=== PATIENT | male | born 1960 | race Caucasian/White ===

== ENCOUNTER → 2020-03-26 08:21 | Outpatient (BNVA) | payer OTHER, SELFPAY | PROVIDERS: Family Provider Nurse Practitioner Family; Referring Provider Nurse Practitioner Family; Visit Provider Orthopaedic Surgery | DX: M65.861 Other synovitis and tenosynovitis, right lower leg (principal); M25.561 Pain in right knee | CPT/HCPCS: 73560; 73565 ==

== ENCOUNTER → 2021-06-02 16:29 | Outpatient (BNVA) | payer OTHER, SELFPAY | PROVIDERS: Family Provider Nurse Practitioner Family; Visit Provider Nurse Practitioner | DX: Z20.822 Contact with and (suspected) exposure to COVID-19 (principal) | CPT/HCPCS: 87635 ==

== ENCOUNTER 2021-07-02 17:19 | Emergency (ER) | payer OTHER, SELFPAY ==
[2021-07-02 17:30] VITALS: BP 135/79; PULSE 72; RESP 20; TEMP 37; O2SAT 98; BMI 35.0
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
--- NOTE | 2021-07-02 18:30 | ECG_ITS ---
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 Measurements Intervals [place] Rate: 64 P: 41 [place]: 181 QRS: -17 QRSD: 100 T: 16 QT: 390 QTc: 405 Interpretive Statements SINUS RHYTHM VOLTAGE CRITERIA FOR LVH [MEETS CRITERIA IN ONE OF: R(aVL), S(V1), R(V5), R(V5/V6)+S(V1)] Compared to ECG 07/02/2014 06:19:12 Left ventricular hypertrophy now present Electronically Signed On 07-03-2021 5:35:15 PERMACULTURE CONTRACTOR by Dian Flaherty M.D. [id number]
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
[2021-07-02 18:44] VITALS: RESP 13
[2021-07-02] MEDS: HYDROmorphone 1 mg/mL INJ 1 mL IM (18:44)
[2021-07-02 19:14] LABS: Basophils % 0.3 %; Eosinophils % 0.2 %; Hematocrit 47.5 % (42.0-52.0); Hemoglobin 16.4 g/dL (11.7-16.6); Lymphocytes # 1.8 10^3/uL (0.8-4.8); Lymphocytes % 17.7 %; Mean Corpuscular HGB Conc 34.5 g/dL (30.0-36.0); Mean Corpuscular Hemoglobin 29.7 pg (28.0-34.0); Mean Corpuscular Volume 86.1 fl (80-94); Mean Platelet Volume 9.4 fL (7.4-10.4); Monocytes # 0.7 10^3/uL (0.2-0.9); Monocytes % 7.1 %; Neutrophils # 7.46 10^3/uL (1.8-7.7); Neutrophils % 74.4 %; Nucleated Red Blood Cells % 0 %; Platelet Count 329 10^3/cmm (130-400); Red Blood Count 5.52 10^6/uL (4.1-5.3); Red Cell Distribution Width 13.2 % (12.1-15.1)
[2021-07-02 19:32] LABS: Alanine Aminotransferase 30 U/L (0-41); Albumin Level 4.7 g/dL (3.5-5.2); Alkaline Phosphatase 89 IU/L (40-130); Aspartate Amino Transferase 27 U/L (0-40); Blood Urea Nitrogen 15 mg/dL (8-23); Calcium 10.4 mg/dL (8.5-10.5); Carbon Dioxide 22 mmol/L (22-29); Chloride 103 mmol/L (98-107); Globulin 2.9 g/dL (1.3-4.6); Glomerular Filtration Rate 61.6 mL/min (90-130); Glucose 103 mg/dL (65-115); Osmolality Calculated 283 mOsm/kg (285-295); Sodium 136 mmol/L (136-145); Total Bilirubin 0.6 mg/dL (0.15-1.2); Total Protein 7.6 g/dL (6.6-8.7)
[2021-07-02] MEDS: iohexol 300 mg/mL 100 mL Btl IV (19:46)
--- NOTE | 2021-07-02 20:37 | XRR_ITS ---
PROCEDURE INFORMATION: Exam: XR Left Shoulder Exam date and time: 07/02/2021 8:37 PM Age: 61 years old Clinical indication: Pain; Shoulder; Left; Additional info: Injury TECHNIQUE: Imaging protocol: XR Left shoulder. Views: 2 or more views. COMPARISON: CT chest abd pel w con* 07/02/2021 7:46 PM FINDINGS: Bones/joints: Normal. Soft tissues: Normal. XR/XR shoulder LT min 2V* [id number] IMPRESSION: No acute findings.
[2021-07-02] MEDS: HYDROcodone-acetaminophen 5-325 mg Tablet 2 TAB PO (20:41)
== END 2021-07-02 20:45 | disposition home or self-care (01) ==
PROVIDERS: Emergency Provider Nurse Practitioner Family; PCP Nurse Practitioner Family
DX: S22.42XA Multiple fractures of ribs, left side, initial encounter for closed fracture (principal); M25.512 Pain in left shoulder; Z79.82 Long term (current) use of aspirin; V29.9XXA Motorcycle rider (driver) (passenger) injured in unspecified traffic accident, initial encounter
CPT/HCPCS: 71101; 71260; 73030; 74177; 80053; 85025; 93005; 96372; 99283; J1170; Q9967

== ENCOUNTER 2021-07-05 23:59 | Emergency (ER) | payer OTHER, SELFPAY ==
[2021-07-06 00:03] VITALS: BP 178/106; PULSE 62; RESP 24; TEMP 36.7; O2SAT 96; BMI 35.0
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
[2021-07-06] MEDS: HYDROmorphone 1 mg/mL INJ 1 mL IM (01:26)
[2021-07-06] MEDS: HYDROcodone-acetaminophen 10-325 mg Tablet 1 TAB PO (02:41)
== END 2021-07-06 02:43 | disposition home or self-care (01) ==
PROVIDERS: Emergency Provider Physician Assistant; PCP Nurse Practitioner Family
DX: S22.42XA Multiple fractures of ribs, left side, initial encounter for closed fracture (principal); Z79.82 Long term (current) use of aspirin; E78.5 Hyperlipidemia, unspecified; I10 Essential (primary) hypertension; V89.2XXA Person injured in unspecified motor-vehicle accident, traffic, initial encounter
CPT/HCPCS: 71101; 99283; J1170

== ENCOUNTER 2023-03-18 13:18 | Outpatient (CLI) | payer OTHER, SELFPAY ==
--- NOTE | 2023-03-18 13:43 | XR_ITS ---
WS: [id number] Exam: XR knee LT 3V* [id number] Date/Time of Exam: 03/18/2023 1:48 PM Reason For Exam: PAIN IN LEFT KNEE/EFFUSION Comparison 03/26/2020. No acute fracture or dislocation. Moderate tricompartmental DJD noted. There are screws in the medial aspect of the upper tibia and lower femur. Moderate effusion in the suprapatellar bursa. There are l ikely loose joint bodies present. IMPRESSION: 1. Moderate tricompartmental DJD. No fracture. 2. Moderate effusion in the suprapatellar bursa. 3. Probable loose joint bodies. Screws in the upper tibia and distal femur.
== END 2023-03-18 13:19 | disposition home or self-care (01) ==
PROVIDERS: PCP Nurse Practitioner Family; Visit Provider Nurse Practitioner Family
DX: M17.12 Unilateral primary osteoarthritis, left knee (principal); M25.562 Pain in left knee; M25.462 Effusion, left knee
CPT/HCPCS: 73562

== ENCOUNTER → 2023-06-18 14:10 | Outpatient (BNVA) | payer OTHER, SELFPAY | PROVIDERS: PCP Nurse Practitioner Family; Referring Provider Nurse Practitioner Family; Visit Provider Student in an Organized Health Care Education/Training Program | DX: M25.562 Pain in left knee (principal); M17.11 Unilateral primary osteoarthritis, right knee | CPT/HCPCS: 73560; 73565 ==

== ENCOUNTER 2023-06-18 14:57 | Outpatient (CLI) | payer OTHER, SELFPAY | END 2023-06-18 14:58 | disposition home or self-care (01) | LOC: SPT 14:57 | PROVIDERS: PCP Nurse Practitioner Family; Visit Provider Student in an Organized Health Care Education/Training Program | DX: Z46.89 Encounter for fitting and adjustment of other specified devices (principal); M17.12 Unilateral primary osteoarthritis, left knee | CPT/HCPCS: 97760; L1851 ==

== ENCOUNTER 2023-11-18 11:32 | Emergency (ER) | payer OTHER, SELFPAY ==
[2023-11-18 11:33] VITALS: BP 147/95; PULSE 65; RESP 22; TEMP 36.9; O2SAT 98
--- NOTE | 2023-11-18 11:56 | XRR_ITS ---
NOTE: Report was unsigned for reason: Order was edited. Original Signature date and time was: 11/18/23 @ 1200 PROCEDURE INFORMATION: Exam: XR Right Hand Exam date and time: 11/18/2023 12:00 PM Age: 63 years old Clinical indication: Injury or trauma; Other: Smashed hand; Blunt trauma (contusions or hematomas); Right TECHNIQUE: Imaging protocol: Radiologic exam of the right hand. Views: 3 or more views. COMPARISON: No relevant prior studies available. FINDINGS: Bones/joints: There are acute comminuted fractures involving the distal tips of the 2nd and 3rd distal phalanges. Associated soft tissue lacerations are noted. No other fracture identified. Soft tissues: See Bones/joints finding. MTDD XR/XR hand LT min 3V* [id number] IMPRESSION: Fractures of the 2nd and 3rd distal phalanges with associated soft tissue injury
[2023-11-18] MEDS: tetanus-dipt-pertussis 0.5 mL SDV IM (12:20)
[2023-11-18] MEDS: ceFAZolin 1,000 mg SDV 1000 MG IVP (12:21)
[2023-11-18] MEDS: ondansetron 2 mg/ML SDV 2 mL 4 MG IVP (12:30)
--- NOTE | 2023-11-18 12:30 | W.ED.EXTPRO ---
HPI - Extremity Problem General: Chief complaint: Extremity Injury, Upper Stated complaint: L hand lac Time Seen by Provider: 11/18/23 11:37 Source: patient Mode of arrival: ambulatory History of Present Illness: 63-year-old male presents emergency room with complaint of crush injury to his left second and third fingers he was working at a local [employer] got his hands between some machinery and solid object in his left second and third fingers were crushed she is unsure of his last tetanus shot. MD Complaint: extremity pain Onset (ago): minute(s) Pain Consistency: constant Location: left and upper extremity (Second third fingers) Severity scale (1-10): 10 Quality: sharp Relieving factors: nothing Exacerbating factors: range of motion and palpation Associated symptoms: Deny arthralgias, chest pain, fever(s), myalgias, rash or short of breath Review of Systems Const: Denies: fever(s) or chills Card: Denies: chest pain Resp: Denies: dyspnea GI: Denies: abdominal pain Musc: Reports: extremity pain; Denies: neck pain or back pain Skin/Breast: Denies: rash PFSH ED PFSH: Medical History No pertinent family history Hypertension Hyperlipidemia Social History Smoking and tobacco/nicotine status: never used tobacco/nicotine Second hand smoke exposure: No Alcohol intake: former Physical Exam Const: GENERAL APPEARANCE: cooperative and comfortable ORIENTATION/CONSCIOUSNESS: Yes awake, Yes oriented to person, Yes oriented to place and Yes oriented to time HENMT: COMMON NORMALS: normocephalic, atraumatic and hearing grossly normal bilaterally HEAD & SCALP: normocephalic and atraumatic Resp: COMMON NORMALS: normal respiratory effort, No retractions, No use of accessory muscles and clear to auscultation bilaterally AUSCULTATION: clear to auscultation bilaterally Cardio: COMMON NORMALS: regular rate, regular rhythm and No murmurs present (Cardio) RATE: regular rate RHYTHM: regular rhythm Extremity: COMMON NORMALS: normal to inspection, capillary refill normal, no clubbing, cyanosis or edema, no calf tenderness and no pedal edema OTHER: Crush injury to the tips of the right second and third fingers. There is maceration of the tissue not amenable to any suture repair Neuro: SENSORIUM/ORIENTATION: Yes oriented to person, Yes oriented to place and Yes oriented to time Skin: COMMON NORMALS: no rashes or lesions noted GENERAL SKIN EXAM: no rashes or lesions noted Course Vital Signs: Vital signs: Vital Signs Temperature 98.4 F 11/18/23 11:33 Pulse Rate 66 11/18/23 14:17 Respiratory Rate 17 11/18/23 13:35 Blood Pressure 133/88 11/18/23 14:17 Pulse Oximetry 95 11/18/23 14:17 Oxygen Delivery Me thod Room Air 11/18/23 13:35 MDM - Extremity (Nontraumatic) Medical Decision Making Crush injury to the right second third fingertips with distal phalanx fractures. There is really not anything amenable to this laceration repair in the emergency room the tissue is quite macerated likely will not be viable if it is a think they will be enough tissue loss that will be difficult to function. Discussed with patient we will discharge him home wound was cleaned and bandaged after digital nerve block applied. Started him on Augmentin. He has received a gram of Ancef here and also updated his tetanus. We have arranged for him to see Dr. Tenorio tomorrow Dr. Tenorio asked that he be n.p.o. for possible revision tomorrow Medical Records I reviewed the patient's medical records. Lab Data I reviewed the patient's lab results. Radiology Impressions Hand X-Ray 11/18/23 11:56 IMPRESSION: Fractures of the 2nd and 3rd distal phalanges with associated soft tissue injury All radiology interpretation(s) finalized by discharge Discharge Plan Discharge Patient Disposition: Home Clinical Impression: Crushing injury of finger of left hand, Fracture of distal phalanx of finger, open Condition: Stable Prescriptions: New hydrocodone-acetaminophen 5-325 mg tablet 1 tab PO Q6H PRN (Reason: pain) Qty: 20 0RF amoxicillin-pot clavulanate 875-125 mg tablet 1 tab PO BID Qty: 14 0RF No Action lisinopril 30 mg tablet 30 mg PO DAILY omeprazole 10 mg capsule,delayed release(DR/EC) 10 mg PO BID (DME) Knee immobilizer See Rx Instructions .Route .MEDSUPPLY Qty: 1 0RF Rx Instructions: As directed (DME) College Scouting Coordinator Knee Brace See Rx Instructions .Route .MEDSUPPLY Qty: 1 0RF Rx Instructions: As directed fenofibrate nanocrystallized 145 mg tablet 145 mg PO DAILY Voltaren Arthritis Pain 1 % gel 2 g topical QID PRN (Reason: JOINT PAIN) Rx Instructions: apply to single elbow, wrist or hand; for hand includes palm/fingers/back of hand Discharge Orders: Discharge ED (Routine); Ordered 11/18/23 Ordered By: Frank Johnson Referrals: Shruthi Dacosta FNP [Primary Care Provider] - Patient Instructions: Opioid Safety, Pain Management Activity Restrictions/Additional Instructions: Thank you for choosing [facility] for your healthcare needs today. It is very important that you follow up as instructed or that you return to the Emergency Department should you have concerns or if your condition changes or worsens in any way. You were seen in the emergency room after a crush injury to the Left hand. The wound was cleaned today and you are started on antibiotics your tetanus was updated. Follow-up with Dr. Tenorio tomorrow in his office do not eat after midnight. He will discuss with your definitive care for these injuries start the oral antibiotics this evening. Coding Level of Care Code ED Aircraft Navigator for Rossy Moreno
[2023-11-18 12:31] VITALS: RESP 16; O2SAT 95
[2023-11-18] MEDS: morphine 4 mg/mL SDV 1 mL IVP (12:31)
[2023-11-18 13:01] VITALS: BP 128/77; PULSE 61; RESP 16; O2SAT 94
[2023-11-18 13:35] VITALS: PULSE 60; RESP 17; O2SAT 94
[2023-11-18 14:17] VITALS: BP 133/88; PULSE 66; O2SAT 95
--- NOTE | 2023-11-18 14:19 | PC.NURSE ---
applied Vaseline gauze to L index/middle finger, telfa, and wrapped with kerlix and coban.
== END 2023-11-18 14:20 | disposition home or self-care (01) ==
PROVIDERS: Emergency Provider Family Medicine; PCP Nurse Practitioner Family
DX: S62.630B Displaced fracture of distal phalanx of right index finger, initial encounter for open fracture (principal); S62.633B Displaced fracture of distal phalanx of left middle finger, initial encounter for open fracture; I10 Essential (primary) hypertension; E78.5 Hyperlipidemia, unspecified; Z79.899 Other long term (current) drug therapy
CPT/HCPCS: 73130; 90471; 90715; 96374; 96375; 99284; 99291; J0690; J2270; J2405

== ENCOUNTER 2023-11-21 14:14 | Emergency (ER) | payer SELFPAY ==
[2023-11-21 14:20] VITALS: BP 170/81; PULSE 79; RESP 17; TEMP 37.1; O2SAT 96; BMI 35.5
--- NOTE | 2023-11-21 14:41 | W.ED.EXTPRO ---
HPI - Extremity Problem General: Chief complaint: Extremity Problem,Nontraumatic Stated complaint: bandage came off post surgery (surgery yesterday) Time Seen by Provider: 11/21/23 14:27 History of Present Illness: 63-year-old male who was seen 2 days ago after crush injury to his left second and third fingers. He was referred to orthopedics and had a revision of the fingertips yesterday. His bandage came off and he presented to the emergency room wanting to have it reevaluated. He has not had any fever sweats chills no drainage no bleeding does have some mild discomfort. Associated symptoms: Deny chest pain or fever(s) Review of Systems Const: Denies: fever(s) or chills Card: Denies: chest pain Resp: Denies: dyspnea [facility] ED PFSH: Medical History No pertinent family history Hypertension Hyperlipidemia Social History Smoking and tobacco/nicotine status: never used tobacco/nicotine Second hand smoke exposure: No Alcohol intake: former Physical Exam Const: COMMON NORMALS: no acute distress GENERAL APPEARANCE: cooperative and comfortable ORIENTATION/CONSCIOUSNESS: Yes awake, Yes oriented to person, Yes oriented to place and Yes oriented to time HENMT: COMMON NORMALS: normocephalic, atraumatic and hearing grossly normal bilaterally HEAD & SCALP: normocephalic and atraumatic Resp: COMMON NORMALS: normal respiratory effort and No retractions Extremity: OTHER: Wounds undressed. Well-approximated no active bleeding no signs infection no wound dehiscence Neuro: SENSORIUM/ORIENTATION: Yes oriented to person, Yes oriented to place and Yes oriented to time Course Vital Signs: Vital signs: Vital Signs Temperature 98.7 F 11/21/23 14:20 Pulse Rate 79 11/21/23 14:20 Respiratory Rate 17 11/21/23 14:20 Blood Pressure 170/81 11/21/23 14:20 Pulse Oximetry 96 11/21/23 14:20 Oxygen Delivery Me thod Room Air 11/21/23 14:20 MDM - Extremity (Nontraumatic) Medical Decision Making Wounds were redressed with Xeroform then Vaseline gauze and bulky padded dressing. Follow-up with orthopedics as previously scheduled. Continue same discharge instructions No radiology studies performed this visit Discharge Plan Discharge Patient Disposition: Home Clinical Impression: Fracture of distal phalanx of finger, open, Traumatic amputation of fingertip Condition: Stable Prescriptions: No Action lisinopril 30 mg tablet 30 mg PO DAILY omeprazole 10 mg capsule,delayed release(DR/EC) 10 mg PO BID (DME) Knee immobilizer See Rx Instructions .Route .MEDSUPPLY Qty: 1 0RF Rx Instructions: As directed (DME) City Clerk Knee Brace See Rx Instructions .Route .MEDSUPPLY Qty: 1 0RF Rx Instructions: As directed fenofibrate nanocrystallized 145 mg tablet 145 mg PO DAILY hydrocodone-acetaminophen 5-325 mg tablet 1 tab PO Q6H PRN (Reason: pain) Qty: 20 0RF amoxicillin-pot clavulanate 875-125 mg tablet 1 tab PO BID Qty: 14 0RF potassium 99 mg Tablet 99 mg PO DAILY ondansetron 4 mg tablet,disintegrating 4 mg PO Q8H PRN (Reason: nausea and vomiting) 3 Days Qty: 9 0RF Discharge Orders: Discharge ED (Routine); Ordered 11/21/23 Ordered By: Frank Johnson Referrals: Dacosta,Shruthi, CLOTH PIECER [Primary Care Provider] - Discharge Diet: Usual diet Discharge Activity: Limit activity as instructed Patient Instructions: Opioid Safety, Pain Management Activity Restrictions/Additional Instructions: Thank you for choosing [facility] for your healthcare needs today. It is very important that you follow up as instructed or that you return to the Emergency Department should you have concerns or if your condition changes or worsens in any way. Follow-up with Dr. Tenorio as previously prescribed continue his activity restrictions as given at the time of discharge from surgery Coding Level of Care Code ED Timing Machine Operator for Rossy Moreno
== END 2023-11-21 14:49 | disposition home or self-care (01) ==
PROVIDERS: Emergency Provider Family Medicine; PCP Nurse Practitioner Family
DX: Z48.01 Encounter for change or removal of surgical wound dressing (principal); S68.121A Partial traumatic metacarpophalangeal amputation of left index finger, initial encounter; S68.123A Partial traumatic metacarpophalangeal amputation of left middle finger, initial encounter; I10 Essential (primary) hypertension; E78.5 Hyperlipidemia, unspecified; X58.XXXA Exposure to other specified factors, initial encounter
CPT/HCPCS: 99282

== ENCOUNTER 2023-11-28 20:47 | Emergency (ER) | payer OTHER, SELFPAY ==
[2023-11-28 21:32] VITALS: BP 144/108; PULSE 85; RESP 18; O2SAT 98
[2023-11-28 21:35] VITALS: BP 150/99; PULSE 88
--- NOTE | 2023-11-28 21:48 | ED_ITS ---
HPI - Wound/Laceration General: Chief Complaint: Wound/Laceration Stated Complaint: infection in amputated finger shooting pain Time Seen by Provider: 11/28/23 21:12 Source: patient Mode of arrival: ambulatory Limitations: no limitations History of Present Illness: Patient is a nice 63-year-old male who presents the ED today for wound evaluation to his left finger amputation sites. Patient had revisions of his left index and middle fingers following traumatic amputation by Dr. Tenorio with date of service being 11/19. Patient states after surgery he finished a week worth of antibiotics. States today he noticed a small area to one of the distal tips that he was concerned with thus prompting his evaluation. Denies drainage, redness, warmth, streaking, or fevers. Extremity Location: Left: hand Patient tetanus UTD: Yes Associated symptoms: Reports no associated symptoms Review of Systems Musc: Reports: extremity pain Skin/Breast: Reports: other (small lesion to distal tip that he is concerned with) [facility] ED PFSH: Medical History No pertinent family history Hypertension Hyperlipidemia Social History Smoking and tobacco/nicotine status: never used tobacco/nicotine Second hand smoke exposure: No Alcohol intake: former Physical Exam Const: COMMON NORMALS: no acute distress, average body habitus, no limitations, healthy appearing, alert and well nourished Extremity: LEFT UPPER EXTREMITY: Yes hand & digits OTHER: pt with distal tip amputation repairs to L index and middle fingers; intact sutures; no redness, warmth, drainage, or streaking; has one small 2mm blood blister like formation that he was concerned about Neuro: SENSORIUM/ORIENTATION: Yes alert Course Vital Signs: Vital signs: Vital Signs Pulse Rate 88 11/28/23 22:04 Respiratory Rate 18 11/28/23 22:04 Blood Pressure 150/99 11/28/23 22:04 Pulse Oximetry 98 11/28/23 22:04 Oxygen Delivery Me thod Room Air 11/28/23 21:32 MDM - Wound/Laceration Medical Decision Making Finger surgical sites appear clean and well cared for and appear to be healing well. He has finished his antibiotics. There is no need for additional antibiotics at this time. Recommend continuing as he has been doing and caring for them. He can follow-up with ortho as currently scheduled appointment. Medical Records I reviewed the patient's medical records. No radiology studies performed this visit Discharge Plan Discharge Patient Disposition: Home Clinical Impression: Traumatic amputation of fingertip Qualifiers: Encounter type: subsequent encounter Qualified Code(s): S68.119D - Complete traumatic metacarpophalangeal amputation of unspecified finger, subsequent encounter Condition: Stable Prescriptions: No Action lisinopril 30 mg tablet 30 mg PO DAILY omeprazole 10 mg capsule,delayed release(DR/EC) 10 mg PO BID (DME) Knee immobilizer See Rx Instructions .Route .MEDSUPPLY Qty: 1 0RF Rx Instructions: As directed (DME) Community Service Director Knee Brace See Rx Instructions .Route .MEDSUPPLY Qty: 1 0RF Rx Instructions: As directed fenofibrate nanocrystallized 145 mg tablet 145 mg PO DAILY hydrocodone-acetaminophen 5-325 mg tablet 1 tab PO Q6H PRN (Reason: pain) Qty: 20 0RF amoxicillin-pot clavulanate 875-125 mg tablet 1 tab PO BID Qty: 14 0RF potassium 99 mg Tablet 99 mg PO DAILY Discharge Orders: Discharge ED (Routine); Ordered 11/28/23 Ordered By: Maura Lewis Referrals: Shruthi Dacosta FNP [Primary Care Provider] - Activity Restrictions/Additional Instructions: As we discussed your surgical wounds appear well-healing at this time. Continue as you have been doing as far as keeping them clean with warm soap and water. Please follow-up with orthopedics at your currently scheduled appointment. Continue to monitor for signs of infection such as redness, warmth, pus-like or odorous drainage, red streaking up your hand or arm, fevers, or any other concerns you may have. Coding Level of Care Code ED Guest Associate for Rossy Moreno
[2023-11-28 22:04] VITALS: BP 150/99; PULSE 88; RESP 18; O2SAT 98
== END 2023-11-28 22:06 | disposition home or self-care (01) ==
PROVIDERS: Emergency Provider Physician Assistant; PCP Nurse Practitioner Family
DX: S68.611A Complete traumatic transphalangeal amputation of left index finger, initial encounter (principal); S68.613A Complete traumatic transphalangeal amputation of left middle finger, initial encounter; I10 Essential (primary) hypertension; E78.5 Hyperlipidemia, unspecified; X58.XXXA Exposure to other specified factors, initial encounter
CPT/HCPCS: 99281

== ENCOUNTER 2023-12-11 07:51 | Outpatient (RCR) | payer OTHER, SELFPAY | END 2024-01-02 23:59 | disposition home or self-care (01) | LOC: SOT 07:51 | PROVIDERS: PCP Nurse Practitioner Family; Visit Provider Nurse Practitioner Family | DX: S68.629A Partial traumatic transphalangeal amputation of unspecified finger, initial encounter (principal); X58.XXXA Exposure to other specified factors, initial encounter | CPT/HCPCS: 97022; 97110; 97140; 97165; 97530 ==

== ENCOUNTER 2024-01-03 06:00 | Outpatient (RCR) | payer OTHER, SELFPAY | END 2024-02-01 23:59 | disposition home or self-care (01) | LOC: SOT 06:00 | PROVIDERS: PCP Nurse Practitioner Family; Visit Provider Nurse Practitioner Family | DX: Z89.022 Acquired absence of left finger(s) (principal) | CPT/HCPCS: 97022; 97110; 97140; 97165 ==

== ENCOUNTER 2024-02-02 06:00 | Outpatient (RCR) | payer OTHER, SELFPAY | END 2024-03-03 23:59 | disposition home or self-care (01) | LOC: SOT 06:00 | PROVIDERS: PCP Nurse Practitioner Family; Visit Provider Nurse Practitioner Family | DX: Z89.022 Acquired absence of left finger(s) (principal) | CPT/HCPCS: 97022; 97110; 97140 ==

== ENCOUNTER → 2025-04-14 11:13 | Outpatient (BNVA) | payer OTHER, SELFPAY | PROVIDERS: PCP Family Medicine; Visit Provider Physician Assistant | DX: M79.642 Pain in left hand (principal); Z89.022 Acquired absence of left finger(s) | CPT/HCPCS: 73130 ==

== ENCOUNTER → 2025-04-19 08:51 | Outpatient (BNVA) | payer MEDICARE, SELFPAY | PROVIDERS: PCP Family Medicine; Visit Provider Surgery | DX: Z12.11 Encounter for screening for malignant neoplasm of colon (principal); R03.0 Elevated blood-pressure reading, without diagnosis of hypertension | CPT/HCPCS: 99024; 99204 ==